=== PATIENT | male | born 1970 | race Hispanic/Latino ===

== ENCOUNTER 2017-06-06 16:30 | Emergency (ER) | payer MEDICARE ==
[~2017-06-06 16:30] MED LIST: AEC81 PO; ALLO300T2 PO; ERGO500014 PO; FLUO20TA29 PO; Folic Acid/Vitamin B Comp W-C PO; MAGOX PO; NIAC500T7 PO; OMEP40CA37 PO; RIVA20TA PO; THYR60TA2 PO
[2017-06-06] MEDS ORDERED: SODIUM CHLORIDE 0.9% 1000ML 1,000 ML IV ONE (17:10)
[2017-06-06 17:33] LABS: EOSINOPHILS % (AUTO) 0.8 % (0.0-8.0); HEMATOCRIT 37.1 % (42-54); LYMPHOCYTES % (AUTO) 15.1 % (21.0-51.0); MEAN CORPUSCULAR HEMOGLOBIN 27.1 pg (27.0-33.0); MEAN CORPUSCULAR HGB CONC 32.4 g/dL (32.0-36.0); MEAN CORPUSCULAR VOLUME 83.8 fL (79-99); MONOCYTES % (AUTO) 6.6 % (3.0-13.0); NEUTROPHILS % (AUTO) 76.5 % (40.0-77.0); NUCLEATED RED BLOOD CELLS 0.1 % (0.0-0.19); PLATELET COUNT (AUTO) 197 K/uL (130-400); RED BLOOD CELL COUNT(AUTO) 4.42 MIL/uL (4.50-6.20); RED CELL DISTRIBUTION WIDTH 16.9 % (11.0-15.5); WHITE BLOOD COUNT (AUTO) 8.7 K/uL (4.8-10.8)
[2017-06-06 17:46] LABS: APPEARANCE,URINE Clear (CLEAR); BILIRUBIN,URINE Small (NEGATIVE); COLOR,URINE Dark Yellow (YELLOW); GLUCOSE, URINE (UA) Negative (NEGATIVE); KETONES,URINE Negative (NEGATIVE); LEUKOCYTE ESTERASE ,URINE Small (NEGATIVE); NITRATE,URINE Negative (NEGATIVE); OCCULT BLOOD,URINE Negative (NEGATIVE); PROTEIN,URINE POS 2+ (NEGATIVE)
[2017-06-06 17:48] LABS: INR 1.55 (0.85-1.15); PARTIAL THROMBOPLASTIN TIME 38.3 SEC (26.3-35.5); PROTHROMBIN TIME 16.1 SEC (9.6-11.6)
[2017-06-06 17:55] LABS: BACTERIA,URINE Few /HPF (None Seen); RBC,URINE 0-1 /HPF (0-1)
[2017-06-06 17:56] LABS: SQUAMOUS EPITHELIAL CELL,UR Few /LPF (0-2)
[2017-06-06 18:35] LABS: POTASSIUM 4.5 mmol/L (3.5-5.1)
[2017-06-06 18:36] LABS: BILIRUBIN,TOTAL 0.9 mg/dL (0.2-1.0); CREATININE 1.6 mg/dL (0.5-1.5)
[2017-06-06 18:37] LABS: ALBUMIN 3.4 g/dL (3.5-5.0); CREATINE KINASE MB 0.8 ng/mL (0.5-3.6); TOTAL PROTEIN, SERUM 7.8 g/dL (6.0-8.3)
== END 2017-06-06 20:38 | disposition home or self-care (01) ==
LOC: EDH 16:30
DX: K64.9 Unspecified hemorrhoids (principal); K92.2 Gastrointestinal hemorrhage, unspecified; Z88.0 Allergy status to penicillin; Z86.73 Personal history of transient ischemic attack (TIA), and cerebral infarction without residual deficits; Z93.3 Colostomy status; Z95.810 Presence of automatic (implantable) cardiac defibrillator
CPT/HCPCS: 36415; 74176; 80053; 81001; 82270; 82550; 82553; 84484; 85025; 85610; 85730; 86850; 86900; 86901; 93005; 99285; J7030

== ENCOUNTER 2017-06-10 11:45 | Emergency (ER) | payer MEDICARE ==
[2017-06-10 12:41] LABS: BASOPHILS % (AUTO) 1.2 % (0.0-5.0); EOSINOPHILS % (AUTO) 4.8 % (0.0-8.0); HEMATOCRIT 37.4 % (42-54); LYMPHOCYTES % (AUTO) 25.6 % (21.0-51.0); MEAN CORPUSCULAR HEMOGLOBIN 26.9 pg (27.0-33.0); MEAN CORPUSCULAR HGB CONC 31.9 g/dL (32.0-36.0); MEAN CORPUSCULAR VOLUME 84.3 fL (79-99); NEUTROPHILS % (AUTO) 59.4 % (40.0-77.0); NUCLEATED RED BLOOD CELLS 0.3 % (0.0-0.19); PLATELET COUNT (AUTO) 217 K/uL (130-400); RED BLOOD CELL COUNT(AUTO) 4.44 MIL/uL (4.50-6.20); RED CELL DISTRIBUTION WIDTH 17.2 % (11.0-15.5); WHITE BLOOD COUNT (AUTO) 8.3 K/uL (4.8-10.8)
[2017-06-10 12:50] LABS: CREATININE 1.4 mg/dL (0.5-1.5); POTASSIUM 4.7 mmol/L (3.5-5.1)
[2017-06-10 12:52] LABS: INR 1.41 (0.85-1.15); PARTIAL THROMBOPLASTIN TIME 37.6 SEC (26.3-35.5); PROTHROMBIN TIME 14.7 SEC (9.6-11.6)
[2017-06-10 12:55] LABS: ALBUMIN 3.3 g/dL (3.5-5.0); BILIRUBIN,TOTAL 0.4 mg/dL (0.2-1.0); TOTAL PROTEIN, SERUM 7.9 g/dL (6.0-8.3)
== END 2017-06-10 14:08 | disposition home or self-care (01) ==
LOC: EDH 11:45
DX: K64.9 Unspecified hemorrhoids (principal); Z86.73 Personal history of transient ischemic attack (TIA), and cerebral infarction without residual deficits; Z88.0 Allergy status to penicillin
CPT/HCPCS: 36415; 80053; 85025; 85610; 85730

== ENCOUNTER 2017-10-11 22:19 | Emergency (ER) | payer MEDICARE ==
[2017-10-11 23:06] LABS: BASOPHILS % (AUTO) 1.9 % (0.0-5.0); EOSINOPHILS % (AUTO) 4.4 % (0.0-8.0); LYMPHOCYTES % (AUTO) 33.2 % (21.0-51.0); MEAN CORPUSCULAR HEMOGLOBIN 21.4 pg (27.0-33.0); MEAN CORPUSCULAR HGB CONC 30.9 g/dL (32.0-36.0); MEAN CORPUSCULAR VOLUME 69.2 fL (79-99); MONOCYTES % (AUTO) 12.2 % (3.0-13.0); NEUTROPHILS % (AUTO) 48.3 % (40.0-77.0); NUCLEATED RED BLOOD CELLS 0.7 % (0.0-0.19); PLATELET COUNT (AUTO) 216 K/uL (130-400); RED BLOOD CELL COUNT(AUTO) 4.63 MIL/uL (4.50-6.20); RED CELL DISTRIBUTION WIDTH 21.1 % (11.0-15.5); WHITE BLOOD COUNT (AUTO) 7.7 K/uL (4.8-10.8)
[2017-10-11 23:15] LABS: CREATININE 1.5 mg/dL (0.5-1.5); POTASSIUM 4.2 mmol/L (3.5-5.1)
[2017-10-11 23:29] LABS: ALBUMIN 3.1 g/dL (3.5-5.0); BILIRUBIN,TOTAL 0.6 mg/dL (0.2-1.0); CREATINE KINASE MB 1.8 ng/mL (0.5-3.6); TOTAL PROTEIN, SERUM 8.1 g/dL (6.0-8.3)
[2017-10-11 23:33] LABS: INR 1.26 (0.85-1.15); PROTHROMBIN TIME 13.2 SEC (9.6-11.6)
== END 2017-10-12 00:41 | disposition short-term general hospital (02) ==
LOC: EDH 22:19
DX: I69.351 Hemiplegia and hemiparesis following cerebral infarction affecting right dominant side (principal); I13.0 Hypertensive heart and chronic kidney disease with heart failure and stage 1 through stage 4 chronic kidney disease, or unspecified chronic kidney disease; E11.22 Type 2 diabetes mellitus with diabetic chronic kidney disease; N18.9 Chronic kidney disease, unspecified; I50.9 Heart failure, unspecified; E07.9 Disorder of thyroid, unspecified; E78.5 Hyperlipidemia, unspecified; Z93.3 Colostomy status; Z88.0 Allergy status to penicillin
CPT/HCPCS: 36415; 70450; 71045; 80053; 82550; 82553; 82948; 83874; 84484; 85025; 85610; 85730; 93005; 94761

== ENCOUNTER → 2018-11-05 | Outpatient (CLI) | payer MEDICARE | END | disposition home or self-care (01) | LOC: LAB 10:09 | PROVIDERS: ATTEND Internal Medicine Gastroenterology | DX: K51.911 Ulcerative colitis, unspecified with rectal bleeding (principal) | CPT/HCPCS: 87507 ==